=== PATIENT | female | born 2000 | race Caucasian/White ===

== ENCOUNTER 2024-01-22 11:33 | Emergency (ER) | payer BC, SELFPAY ==
[2024-01-22 11:35] VITALS: BP 171/118; PULSE 98; RESP 18; TEMP 36.2; O2SAT 100
--- NOTE | 2024-01-22 11:52 | W.ED.GENAD ---
Discharge Plan Disposition Patient Disposition: Home Condition: Stable Discharge Details Chief Complaint: Epistaxis Clinical Impression: Left-sided epistaxis Primary Care Provider: Maryann Balderas ED Provider: Daniele Mai Home Meds and New Rx's Prescriptions: No Action omeprazole 20 mg capsule,delayed release(DR/EC) 10 mg PO BID famotidine 20 mg tablet 10 mg PO BID levocetirizine [Xyzal] 5 mg tablet 10 mg PO BID Discharge Instructions Additional Instructions: If you have bleeding use the nasal clamp or your fingers to apply pressure over the cartilage portion of your nose and lean her head forward. If you still bleeding after 15 to 20 minutes return to the emergency department for reevaluation You can use the Afrin 3 times a day for 3 days Follow-up with your primary care provider within 1 to 2 weeks, have your blood pressure rechecked. HPI General Mode of arrival: ambulatory. Date/Time Provider Initiated Documentation: 01/22/24 11:36. Limitations to Documentation: no limitations. Information obtained by: patient. History of Present Illness 23 year old F presents to the emergency department with the chief complaint of Left-sided nosebleed, described as moderate, Patient started experiencing this minute(s) (30) No relieving factors improve symptom(s), No exacerbating factors reported . Patient notes no other symptoms.. Patient did receive the following treatments prior to arrival, none Related Data Home Medications Medication Instructions Recorded Confirmed famotidine 20 mg tablet 10 mg PO BID 01/22/24 01/22/24 levocetirizine 5 mg tablet (Xyzal) 10 mg PO BID 01/22/24 01/22/24 omeprazole 20 mg capsule,delayed 10 mg PO BID 01/22/24 01/22/24 release Allergies Allergy/AdvReac Type Severity Reaction Status Date / Time pineapple Allergy Severe Anaphylaxis Verified 01/22/24 11:44 Latex, Natural Rubber AdvReac Intermediate Other (See Verified 01/22/24 11:44 Comment) General Stated Complaint: Epistaxis IRVIN: 3 Review of Systems All systems reviewed & are unremarkable except as noted in HPI and below Constitutional Constitutional: Denies chills, Denies fever(s) and Denies weakness Cardiovascular Cardiovascular: Denies chest pain and Denies dyspnea Respiratory Respiratory: Denies cough and Denies dyspnea Gastrointestinal Gastrointestinal: Denies abdominal pain, Denies nausea and Denies vomiting Genitourinary Genitourinary: Denies dysuria Musculoskeletal Musculoskeletal: Denies joint swelling Integumentary/Breasts Skin/Breast: Denies rash Neurologic Neurologic: Denies weakness Exam Const General: no acute distress Orientation: alert [facility] Head: normal to inspection Ears: external ears normal General nose exam: no nasal polyps Mouth: moist mucous membranes Eyes General: appearance normal, both eyes and all related structures Neck Neck: normal visual inspection Resp Effort & Inspection: normal respiratory effort and able to speak in complete sentences Cardio Rate: regular rate Skin General skin exam: no rashes or lesions noted Neuro General: patient alert and patient oriented x3 Extrem General: normal to inspection Psych Mental Status: mental status grossly normal Course Vital Signs Vital signs: Vital Signs Temperature 36.2 C L 01/22/24 11:35 Pulse 98 H 01/22/24 11:35 Respiratory Rate 18 01/22/24 11:35 Blood Pressure 171/118 H 01/22/24 11:35 Pulse Oximetry 100 01/22/24 11:35 Temperature 36.2 C L 01/22/24 11:35 Temperature Source Skin 01/22/24 11:35 Pulse 98 H 01/22/24 11:35 Respiratory Rate 18 01/22/24 11:35 Blood Pressure 171/118 H 01/22/24 11:35 Pulse Oximetry 100 01/22/24 11:35 Oxygen Delivery Method Room Air 01/22/24 11:35 Oxygen Flow Rate 0 01/22/24 11:35 Medical Decision Making 23-year-old female states she gets frequent nosebleeds comes in after she had a left-sided nosebleed. Denies any recent fevers, no recent URIs, no facial trauma. She has a nasal clamp on which stopped bleeding currently. No signs of trauma to the head, will keep the clamp on for 10-15 more minutes and then remove it and see if there is a source of bleeding. The bleeding was described as oozing, doubt posterior bleed Patient stable, has no recurrent bleeding, no areas to require cauterization. Will send home with Afrin to use as needed, advised to follow-up with her primary care and return precautions given Differential Diagnosis Differential Diagnosis: Dysuria epistaxis, posterior epistaxis Quality:SDOH Health Related Social Needs: No Data to Display PFSH All Active Problems (Updated 01/22/24 @ 12:08 by Daniele Mai MD) Left-sided epistaxis (Acute) Social History Smoking/Tobacco Use Status: Never Smoking risk assessment performed?: Yes Alcohol Intake: current Alcohol Intake frequency: holidays/special occasions only Substance use type: does not use Housing: apartment Do you feel safe at home: Yes Do you feel safe in your relationship?: Yes
[2024-01-22] MEDS: Acetaminophen 500 MG TAB 1000 MG PO (12:11)
[2024-01-22] MEDS: Oxymetazolone 0.05% SPRAY 15 ML BTL NS (12:14)
== END 2024-01-22 12:20 | disposition home or self-care (01) ==
LOC: ER 12:32
PROVIDERS: Emergency Provider Emergency Medicine; PCP Nurse Practitioner Family
DX: R04.0 Epistaxis (principal)
CPT/HCPCS: 99283